=== PATIENT | male | born 1975 | race American Indian/Alaskan Native ===

== ENCOUNTER 2018-09-15 14:26 | Emergency (ER) | payer SELFPAY ==
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
[2018-09-15] MEDS ORDERED: BOOSTRIX IM ONE (16:41)
[2018-09-15] MEDS ORDERED: IBUPROFEN PO ONE (16:41)
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
[2018-09-15 17:32] VITALS: BP 160/88
== END 2018-09-15 17:09 | disposition home or self-care (01) ==
LOC: ED 14:26
DX: S40.812A Abrasion of left upper arm, initial encounter (principal); V49.49XA Driver injured in collision with other motor vehicles in traffic accident, initial encounter; Y93.89 Activity, other specified; Y92.89 Other specified places as the place of occurrence of the external cause; Y99.8 Other external cause status
CPT/HCPCS: 90471; 90715; 99282